=== PATIENT | female | born 1965 | race Caucasian/White ===

== ENCOUNTER → 2021-05-28 | Outpatient (CLI) | payer OTHER | LOC: KOH-I 10:20 | DX: M54.50 Low back pain, unspecified (principal); M47.816 Spondylosis without myelopathy or radiculopathy, lumbar region | CPT/HCPCS: 72100 ==

== ENCOUNTER → 2021-06-29 | Outpatient (CLI) | payer OTHER | LOC: HEART 5 06-15 15:30 | DX: R00.0 Tachycardia, unspecified (principal) ==

== ENCOUNTER → 2021-06-30 | Outpatient (CLI) | payer OTHER | LOC: KOH-I 10:50 | DX: M79.642 Pain in left hand (principal); M79.641 Pain in right hand; R09.89 Other specified symptoms and signs involving the circulatory and respiratory systems | CPT/HCPCS: 70220; 73110; 73130 ==